=== PATIENT | female | born 1995 | race Hispanic/Latino ===

== ENCOUNTER 2017-05-31 12:54 | Emergency (ER) | payer BC ==
[2017-05-31 13:46] VITALS: RESP 18
[2017-05-31] MEDS ORDERED: Sodium Chloride 0.9% 1,000 ML IV STA (14:02)
--- NOTE | 2017-05-31 14:25 | ED PDOC ---
HPI: Abdomen Time Seen by Provider: 05/31/17 13:57 Chief Complaint (Nursing): Abdominal Pain Chief Complaint (Provider): Abdominal pain History Per: Patient History/Exam Limitations: no limitations Onset/Duration Of Symptoms: Hrs (today), Sudden Onset Current Symptoms Are (Timing): Gone Now Location Of Pain/Discomfort: Periumbilical Associated Symptoms: Diarrhea. denies: Fever, Chills, Nausea, Vomiting Last Bowel Movement: Today (this morning.) Additional Complaint(s): Margie Boyd is a 21 year old female, with no significant past medical history, who presents to the emergency department for a sudden onset of severe periumbilical abdominal pain this morning. Patient states the pain currently subsided and it lasted more than an hour. She had diarrhea last night but reports she gets it often. Patient didn't eat anything out of the ordinary and last bowel movement was this morning with normal consistency. She denies any fever, chills, nausea or vomit. No further medical complaints. PMD: None provided. Past Medical History Reviewed: Historical Data, Nursing Documentation, Vital Signs Vital Signs: Last Vital Signs Temp 98.4 F 05/31/17 13:44 Pulse 72 05/31/17 13:44 Resp 18 05/31/17 13:44 BP 136/82 05/31/17 13:44 Pulse Ox 99 05/31/17 15:55 - Medical History PMH: No Chronic Diseases - Surgical History Surgical History: No Surg Hx - Family History Family History: States: Unknown Family Hx - Allergies Allergies/Adverse Reactions: Allergies Allergy/AdvReac Type Severity Reaction Status Date / Time No Known Allergies Allergy Verified 05/31/17 13:43 Review of Systems ROS Statement: Except As Marked, All Systems Reviewed And Found Negative Constitutional: Negative for: Fever, Chills Gastrointestinal: Positive for: Abdominal Pain (periumbilical), Diarrhea. Negative for: Nausea, Vomiting Physical Exam - Reviewed Nursing Documentation Reviewed: Yes Vital Signs Reviewed: Yes - Physical Exam Appears: Positive for: Well, Non-toxic, No Acute Distress Head Exam: Positive for: ATRAUMATIC, NORMAL INSPECTION, NORMOCEPHALIC Skin: Positive for: Normal Color, Warm, Dry Eye Exam: Positive for: Normal appearance, EOMI, PERRL Neck: Positive for: Painless ROM, Supple Cardiovascular/Chest: Positive for: Regular Rate, Rhythm. Negative for: Murmur Respiratory: Positive for: Normal Breath Sounds. Negative for: Respiratory Distress Gastrointestinal/Abdominal: Positive for: Normal Exam, Soft. Negative for: Tenderness Back: Positive for: Normal Inspection. Negative for: L CVA Tenderness, R CVA Tenderness, Vertebral Tenderness Extremity: Positive for: Normal ROM. Negative for: Tenderness, Deformity, Swelling Neurologic/Psych: Positive for: Alert, Oriented. Negative for: Motor/Sensory Deficits - Laboratory Results Result Diagrams: 05/31/17 14:30 05/31/17 14:30 - ECG O2 Sat by Pulse Oximetry: 99 (RA) Pulse Ox Interpretation: Normal Medical Decision Making Medical Decision Making: Initial Impression: Abdominal pain resolved r/o electrolyte abnormality and dehydration Initial Plan: --Beta-HCG, Quantitative --CMP --CBC w/ differential --Sodium Chloride 1,000 ml IV 999 mls/hr --Pepcid 20 mg IVP --Reevaluation -Will order labs and hydrate with IV fluids. Time: 15:54 --Labs are normal -- Patient tolerated PO --Patient feels better Time: 16:14 Upon provider reevaluation patient's blood pressure improved and is feeling better. Patient is medically stable, and requires no further treatment in the ED at this time. Patient will be discharged home. Counseling was provided and all questions were answered regarding diagnosis. There is agreement to discharge plan. Return if symptoms persist or worsen. Clinical impression: Abdominal pain Scribe Attestation: Documented by Titi Zuleta and Karolyn Greene, acting as a scribe for Galdino Schneider MD Provider Scribe Attestation: All medical record entries made by the Scribe were at my direction and personally dictated by me. I have reviewed the chart and agree that the record accurately reflects my personal performance of the history, physical exam, medical decision making, and the department course for this patient. I have also personally directed, reviewed, and agree with the discharge instructions and disposition. Disposition - Clinical Impression Clinical Impression: Abdominal pain - Disposition Disposition: Routine/Home Disposition Time: 16:14 Condition: IMPROVED Additional Instructions: follow up with your primary doctor in1-2 days return to the ED with any worsening or concerning symptoms eat bland diet Instructions: Acute Abdomen (Belly Pain), Adult (DC) Forms: [employer] ([place]ron[place])
[2017-05-31 14:45] LABS: BASO % 0.4 % (0.0-2.0); EOS # 0.1 K/uL (0.0-0.7); EOS % 1.9 % (0.0-4.0); HEMOGLOBIN 13.6 g/dL (12.0-16.0); LYMPH # 1.7 K/uL (1.0-4.3); LYMPH % 25.1 % (20.0-40.0); MEAN CELL VOLUME 88.4 fl (81.0-99.0); MEAN CORPUSCULAR HEMOGLOBIN 29.8 pg (27.0-31.0); MEAN CORPUSCULAR HGB CONC 33.7 g/dL (33.0-37.0); MEAN PLATELET VOLUME 9.9 fl (7.2-11.7); MONO # 0.4 K/uL (0.0-0.8); MONO % 5.5 % (0.0-10.0); NEUT # 4.5 K/uL (1.8-7.0); NEUT % 67.1 % (50.0-75.0); NRBC % 0.1 % (0.0-0.0); RBC 4.57 Mil/uL (3.80-5.20); RED CELL DISTRIBUTION WIDTH 12.2 % (11.5-14.5); WHITE BLOOD COUNT 6.7 K/uL (4.8-10.8)
[2017-05-31 14:54] LABS: ALB/GLOB RATIO 1.2 (1.0-2.1); ALBUMIN 4.1 g/dL (3.5-5.0); ALT/SGPT 36 U/L (9-52); AST/SGOT 26 U/L (14-36); BLOOD UREA NITROGEN 8 mg/dl (7-17); CALCIUM 9.7 mg/dL (8.4-10.2); GFR AFRICAN-AMERICAN > 60; GFR NON-AFRICAN AMERICAN > 60
[2017-05-31 16:14] VITALS: BP 110/70; PULSE 76; TEMP 98
[2017-05-31 16:15] VITALS: O2SAT 99
== END 2017-05-31 16:17 | disposition home or self-care (01) ==
LOC: H.ER 12:54
DX: R10.9 Unspecified abdominal pain (principal)
CPT/HCPCS: 80053; 84702; 85025; 96361; 96374; 99284; J7040